=== PATIENT | female | born 1975 | race Caucasian/White ===

== ENCOUNTER 2022-06-22 17:05 | Emergency (ER) | payer OTHER ==
[2022-06-22] MEDS ORDERED: HYDROcodone/Acetaminophen 5/325 mg Tablet ONE (17:17)
[2022-06-22] MEDS ORDERED: Ibuprofen 800 MG TAB ONE (17:18)
[2022-06-22] MEDS ORDERED: Cyclobenzaprine 10 MG TAB ONE (17:18)
== END 2022-06-22 17:56 | disposition home or self-care (01) ==
LOC: BURERS 17:05
DX: S16.1XXA Strain of muscle, fascia and tendon at neck level, initial encounter (principal); S13.4XXA Sprain of ligaments of cervical spine, initial encounter; M54.6 Pain in thoracic spine; V49.9XXA Car occupant (driver) (passenger) injured in unspecified traffic accident, initial encounter
CPT/HCPCS: 99283